=== PATIENT | male | born 1950 | race Caucasian/White ===

== ENCOUNTER 2016-06-22 01:30 | Emergency (ER) | payer SELFPAY ==
[~2016-06-22] VITALS: Ht 170.2 cm; Wt 72.6 kg
[2016-06-22 02:25] VITALS: BP 135/85
[2016-06-22] MEDS ORDERED: ONDANSETRON HCL 4 MG/2 ML VIAL IV ONE (03:15)
[2016-06-22] MEDS ORDERED: HYDROmorphone HCL 2 MG/ML VL IV ONE (03:15)
== END 2016-06-22 04:34 | disposition home or self-care (01) ==
LOC: EDBD 01:30 → ER 01:30
DX: M54.9 Dorsalgia, unspecified (principal); S13.9XXA Sprain of joints and ligaments of unspecified parts of neck, initial encounter; S33.5XXA Sprain of ligaments of lumbar spine, initial encounter; Z88.6 Allergy status to analgesic agent; W19.XXXA Unspecified fall, initial encounter; Y93.89 Activity, other specified; Y99.8 Other external cause status; Y92.89 Other specified places as the place of occurrence of the external cause
CPT/HCPCS: 72125; 72131; 96374; 96375; 99284; J1170; J2405